=== PATIENT | male | born 1990 | race Caucasian/White ===

== ENCOUNTER 2022-07-11 05:15 | Emergency (ER) | payer SELFPAY ==
[~2022-07-11] VITALS: Ht 177.8 cm; Wt 100.0 kg
[~2022-07-11 05:15] MED LIST: NORPTMEDS CO
[2022-07-11 08:21] VITALS: BP 116/79
== END 2022-07-11 07:22 | disposition home or self-care (01) ==
LOC: ER 05:15
DX: K61.0 Anal abscess (principal); Z53.21 Procedure and treatment not carried out due to patient leaving prior to being seen by health care provider